=== PATIENT | female | born 1985 | race Caucasian/White ===

== ENCOUNTER 2017-02-23 05:14 | Emergency (ER) | payer SELFPAY ==
[~2017-02-23] VITALS: Ht 167.6 cm; Wt 108.6 kg
[~2017-02-23 05:14] MED LIST: ALBUTEROL SULF8.5 GM IH; AMOXICILLIN875 MG PO; DAY TIME CO5 MG/5 ML PO; FLEXERIL5 MG PO; NAPROSYN500 MG PO; NOHOMEMEDS; PREDNISONE20 MG PO; TRAMADOL HCL50 MG PO; ZITHROMAX Z-PA250 MG PO
[2017-02-23] MEDS ORDERED: PREDNISONE50 MG PO (06:04)
[2017-02-23] MEDS ORDERED: PROVENTIL HFA6.7 GM IH (06:04)
[2017-02-23] MEDS ORDERED: TESSALON200 MG PO (06:04)
[2017-02-23 06:23] VITALS: BP 134/86
== END 2017-02-23 06:24 | disposition home or self-care (01) ==
LOC: EME 05:14
DX: J20.9 Acute bronchitis, unspecified (principal); F17.200 Nicotine dependence, unspecified, uncomplicated; Z88.5 Allergy status to narcotic agent
CPT/HCPCS: 71020; 94640; 99281; 99284; J7512

== ENCOUNTER 2017-08-15 04:08 | Emergency (ER) | payer SELFPAY ==
[~2017-08-15] VITALS: Ht 167.6 cm; Wt 109.6 kg
[~2017-08-15 04:08] MED LIST changes: +PREDNISONE50 MG PO; +PROVENTIL HFA6.7 GM IH; +TESSALON200 MG PO
[2017-08-15 04:41] LABS: HEMATOCRIT 38.5 % (36.0-46.0); HEMOGLOBIN 13.3 G/DL (11.9-15.5); MCH 28.9 PG (29.0-34.0); MCHC 34.5 G/DL (30.0-36.0); MCV 83.7 FL (83-99); PLATELET COUNT 282 K/uL (156-360); RBC DIS.WIDTH-CV 12.7 % (11.8-14.6); WHITE BLOOD COUNT 8.9 K/uL (4.1-10.2)
[2017-08-15 04:50] LABS: ALBUMIN 3.9 g/dL (3.2-4.8)
[2017-08-15 04:53] LABS: GLUCOSE 148 mg/dL (70-99); TOTAL PROTEIN 6.4 g/dL (6.4-8.3)
[2017-08-15 04:55] LABS: TOTAL BILIRUBIN 0.2 mg/dL (0.0-1.0)
[2017-08-15 04:56] LABS: ALKALINE PHOSPHATASE 76 IU/L (3-129)
[2017-08-15 04:57] LABS: CREATININE 0.8 mg/dL (0.6-1.3); GFR ESTIMATE (CALCULATED) > 59 mL/min/
[2017-08-15 04:58] LABS: AST (GOT) 12 IU/L (2-34); UREA NITROGEN (BUN) 21 mg/dL (9-23)
[2017-08-15 04:59] LABS: ALT (GPT) 12 IU/L (3-49)
[2017-08-15 05:05] LABS: QUANTITATIVE HCG < 4.0 MIU/ML
[2017-08-15 06:39] LABS: CHLORIDE 110 mEq/L (99-109)
[2017-08-15 06:44] LABS: POTASSIUM 3.8 mEq/L (3.7-5.4); SODIUM 140 mEq/L (136-147)
[2017-08-15 06:52] LABS: LIPASE 16 U/L (1.0-51.0)
[2017-08-15 07:59] LABS: APPEARANCE CLOUDY ((CLEAR)); BILIRUBIN NEGATIVE; COLOR LT.RED ((YELLOW)); GLUCOSE (STRIP) NEGATIVE; KETONES NEGATIVE
[2017-08-15 08:00] LABS: BLOOD LARGE
[2017-08-15 08:01] LABS: LEUKOCYTES TRACE; NITRITE NEGATIVE; PROTEIN (STRIP) 100; UROBILINOGEN 0.2 MG/DL (0.2-1.0)
[2017-08-15 08:06] LABS: RED BLOOD CELLS TNTC /HPF (0-5); WHITE BLOOD CELLS 0-5 /HPF (0-5)
[2017-08-15 08:07] LABS: BACTERIA 3+ /HPF; EPITHELIAL CELLS 1+ /HPF; MUCUS NONE SEEN /LPF; UCUL ADDED? YES
[2017-08-15 08:08] LABS: AMORPHOUS URATES CRYSTALS 2+
[2017-08-15] MEDS ORDERED: CIPRO500 MG PO (08:42)
[2017-08-15] MEDS ORDERED: FLAGYL500 MG PO (08:42)
[2017-08-15] MEDS ORDERED: ZOFRAN4 MG PO (08:45)
[2017-08-15] MEDS ORDERED: VOLTAREN50 MG PO (08:45)
[2017-08-15 09:04] VITALS: BP 113/65
== END 2017-08-15 09:07 | disposition home or self-care (01) ==
LOC: EME 04:08
DX: N94.6 Dysmenorrhea, unspecified (principal); K52.9 Noninfective gastroenteritis and colitis, unspecified; F17.200 Nicotine dependence, unspecified, uncomplicated; Z90.49 Acquired absence of other specified parts of digestive tract; Z88.5 Allergy status to narcotic agent
CPT/HCPCS: 74176; 80053; 81003; 83690; 84702; 85027; 87086; 99281; 99285; J1885; J2405; J2550; J3010; J7120; S0028